=== PATIENT | female | born 1960 | race Caucasian/White ===

== ENCOUNTER 2020-10-14 17:40 | Emergency (ER) | payer BC, SELFPAY | END 2020-10-14 19:02 | disposition home or self-care (01) | LOC: NAV ERS 17:40 → EDBD 17:40 → NAV ERS 19:02 | DX: R09.89 Other specified symptoms and signs involving the circulatory and respiratory systems (principal); E78.5 Hyperlipidemia, unspecified; E78.00 Pure hypercholesterolemia, unspecified; Z79.899 Other long term (current) drug therapy | CPT/HCPCS: 70360; 71046 ==